=== PATIENT | female | born 1965 | race Two or more races ===

== ENCOUNTER 2019-02-04 09:43 | Emergency (ER) | payer OTHER ==
[2019-02-04 09:54] VITALS: BP 149/87; PULSE 81; TEMP 98.4; BMI 25.7
--- NOTE | 2019-02-04 10:50 | PDOC ---
History of Present Illness - General Chief Complaint: Injury Stated Complaint: FALL Time Seen by Provider: 02/04/19 09:58 History Source: Patient - History of Present Illness Timing/Duration: reports: this morning Location: reports: face Past History - Past Medical History Allergies/Adverse Reactions: Allergies Allergy/AdvReac Type Severity Reaction Status Date / Time No Known Allergies Allergy Verified 02/04/19 09:54 Home Medications: Ambulatory Orders NK [No Known Home Medication] 02/04/19 COPD: No HTN: Yes - Immunization History Immunization Up to Date: Yes - Suicide/Smoking/Psychosocial Hx Smoking History: Never smoked Review of Systems - Review of Systems ABD/GI: No: Nausea, Vomiting Neurological: No: Headache, Dizziness *Physical Exam - Vital Signs Last Vital Signs Temp Pulse Resp BP Pulse Ox 98.4 F 81 18 149/87 100 02/04/19 09:51 02/04/19 09:51 02/04/19 09:51 02/04/19 09:51 02/04/19 09:51 - Physical Exam General Appearance: Yes: Appropriately Dressed. No: Apparent Distress HEENT: positive: Normal Voice Neck: positive: Supple Respiratory/Chest: negative: Respiratory Distress Integumentary: positive: Dry, Warm, Other (~0.5 cm superficial, linear, lac to mid forehead w/ minimal bleeding to site) Neurologic: positive: Fully Oriented, Alert, Normal Mood/Affect Procedures - Laceration/Wound Repair Face Wound Length: to 2.5 cm Wound Explored: clean Wound's Depth, Shape: superficial Irrigated w/ Saline: Yes Betadine Prep: Yes Amount of Anesthetic (ccs): 3 Suture Size/Type: 5:0 Number of Sutures: 3 Sterile Dressing Applied: Yes Medical Decision Making - Medical Decision Making 02/04/19 10:50 53-year-old female, denies any past medical history and not on any blood thinners, here with facial laceration after injury. 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 Has pain to site, but otherwise no headache and denies LOC, dizziness, nausea or vomiting. Tetanus up-to-date per patient See exam Facial lac s/p minor head injury No LOC Not on blood thinners Tetanus UTD -lac repair -wound care as needed in 2 days *DC/Admit/Observation/Transfer Diagnosis at time of Disposition: Facial laceration Qualifiers: Encounter type: initial encounter Qualified Code(s): S01.81XA - Laceration without foreign body of other part of head, initial encounter - Discharge Dispostion Disposition: HOME Condition at time of disposition: Improved - Referrals - Patient Instructions Printed Discharge Instructions: DI for Laceration Repair -- Simple Additional Instructions: Mantenga el vendaje en [place] al menos 24 horas, despus de lo cual se puede abrir home al aire. Puede limpiar la herida con cuidado con agua y jabn suave despus de 24 horas para evitar la formacin de costras en los nudos de sutura. Eliane puede aplicar un ungento antibitico dos veces al da hasta que se retiren las suturas. Regreso por enrojecimiento, secrecin o fiebre. Las suturas se retiran en 5 arnett. Print Language: UPPER SORBIAN - Post Discharge Activity
== END 2019-02-04 11:09 | disposition home or self-care (01) ==
LOC: JERFT 09:43
PROC: 0HQ1XZZ Repair Face Skin, External Approach (ICD-10-PCS; principal; 2019-02-04)
DX: S01.81XA Laceration without foreign body of other part of head, initial encounter (principal); W22.8XXA Striking against or struck by other objects, initial encounter; Y93.E8 Activity, other personal hygiene; Y92.012 Bathroom of single-family (private) house as the place of occurrence of the external cause; Y99.8 Other external cause status
CPT/HCPCS: 99282-25